=== PATIENT | female | born 1985 | race Caucasian/White ===

== ENCOUNTER 2019-05-05 01:06 | Emergency (ER) | payer OTHER ==
[~2019-05-05] VITALS: Ht 172.7 cm; Wt 72.6 kg
[~2019-05-05 01:06] MED LIST: CELEXA 20 MG TA20 M1 PO; HYDROCODON-ACE1 EAC7 PO; SPRINTEC1 EACH PO
[2019-05-05] MEDS ORDERED: CBD OIL (01:21)
[2019-05-05] MEDS ORDERED: SUDAFED 12 HOU120 MG PO (01:22)
[2019-05-05 02:21] LABS: URINE BILIRUBIN NEGATIVE (Negative); URINE BLOOD NEGATIVE (Negative); URINE CLARITY CLEAR; URINE COLOR YELLOW; URINE GLUCOSE-RANDOM NEGATIVE (Negative); URINE KETONES NEGATIVE (Negative); URINE LEUKOCYTES-REFLEX NEGATIVE (Negative); URINE NITRITE-REFLEX NEGATIVE (Negative); URINE PROTEIN NEGATIVE (Negative); URINE SPECIFIC GRAVITY <= 1.005 (1.005-1.030); URINE UROBILINOGEN 0.2 E.U./dl (0.2-1.0)
[2019-05-05] MEDS ORDERED: LORCET 5-325 M1 EACH PO (03:39)
[2019-05-05 03:47] VITALS: BP 118/56
== END 2019-05-05 03:47 | disposition home or self-care (01) ==
LOC: M.ERS 01:06
PROVIDERS: Emergency Medicine
DX: S01.01XA Laceration without foreign body of scalp, initial encounter (principal); S60.221A Contusion of right hand, initial encounter; Y04.2XXA Assault by strike against or bumped into by another person, initial encounter; Y93.89 Activity, other specified; Y92.89 Other specified places as the place of occurrence of the external cause; Y99.8 Other external cause status